=== PATIENT | male | born 2000 | race Caucasian/White ===

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

== ENCOUNTER 2021-03-24 22:26 | Emergency (ER) | payer OTHER ==
[~2021-03-24] VITALS: Ht 165.1 cm; Wt 148.3 kg
[~2021-03-24 22:26] MED LIST changes: -PROM118S4 PO; +PROM118S5 PO
[2021-03-24 22:38] VITALS: BP 131/60
--- NOTE | 2021-03-24 22:44 | NUR ---
PATIENT AMBULATED TO BED 11 WITH FATHER.
[2021-03-24] MEDS ORDERED: ONDA-188 SL (23:55)
[2021-03-25] MEDS: ONDANSETRON 4 MG ODT PO ONE (00:08)
[2021-03-25 00:24] VITALS: BP 131/60
--- NOTE | 2021-03-25 00:36 | NUR ---
Patient discharged with v/s stable. Written and verbal after care instructions given and explained. Patient verbalized understanding. Carried with steady gait. All questions addressed prior to discharge. Advised to follow up with PMD.
== END 2021-03-25 00:36 | disposition home or self-care (01) ==
LOC: MED 22:26
DX: R11.2 Nausea with vomiting, unspecified (principal); F41.9 Anxiety disorder, unspecified; F32.9 Major depressive disorder, single episode, unspecified; Z79.899 Other long term (current) drug therapy
CPT/HCPCS: 99283; Q0162

== ENCOUNTER 2021-09-17 10:03 | Emergency (ER) | payer OTHER ==
[~2021-09-17] VITALS: Ht 162.6 cm; Wt 156.7 kg
[~2021-09-17 10:03] MED LIST changes: +ONDA-188 SL
[2021-09-17 10:14] VITALS: BP 139/88
--- NOTE | 2021-09-17 10:35 | NUR ---
21 Y/O MALE BIB SELF C/O PAIN IN THE BACK TOOTH, JAW PAIN 4/10. DENIES ANY FEVER, DIFFICULTY SWALLOWING OR CHEWING, NO SWELLING NOTED ON THE AREA. PMH; DENIES NKA
--- NOTE | 2021-09-17 10:44 | NUR ---
DR LYNCH AT BEDSIDE
[2021-09-17] MEDS ORDERED: AMOX500C25 PO (10:47)
[2021-09-17] MEDS ORDERED: NAPR-54 PO (10:47)
--- NOTE | 2021-09-17 10:58 | NUR ---
Patient discharged with v/s stable. Written and verbal after care instructions ABOUT DENTAL ABSCESS given and explained. Patient alert, oriented and verbalized understanding of instructions. Ambulatory with steady gait. All questions addressed prior to discharge. ID band removed. Patient advised to follow up with PMD. Rx of AMOXICILLIN AND NAPROXEN given. Patient educated on indication of medication including possible reaction and side effects. Opportunity to ask questions provided and answered.
== END 2021-09-17 10:57 | disposition home or self-care (01) ==
LOC: MED 10:03
DX: K08.89 Other specified disorders of teeth and supporting structures (principal); Z79.899 Other long term (current) drug therapy; Z79.2 Long term (current) use of antibiotics; Z79.1 Long term (current) use of non-steroidal anti-inflammatories (NSAID)
CPT/HCPCS: 99283

== ENCOUNTER 2022-11-29 04:58 | Emergency (ER) | payer OTHER, MEDICAID ==
[~2022-11-29] VITALS: Ht 167.6 cm; Wt 108.9 kg
[~2022-11-29 04:58] MED LIST changes: +AMOX500C25 PO; +NAPR-54 PO
[2022-11-29 05:05] VITALS: BP 120/62; PULSE 79; RESP 17; TEMP 98.2; O2SAT 99
--- NOTE | 2022-11-29 05:11 | NUR ---
PT. WALKED TO BED 04
--- NOTE | 2022-11-29 05:15 | NUR ---
PT WENT TO BED 4
--- NOTE | 2022-11-29 05:21 | NUR ---
PT HAS PAIN AND SOME BRUISES IN THE LEFT ABD AND CUT IN LEFT
--- NOTE | 2022-11-29 05:22 | NUR ---
Patient being evaluated by physician at bedside.
--- NOTE | 2022-11-29 05:36 | NUR ---
PT WENT TO RADIOLOGY
[2022-11-29] MEDS ORDERED: NAPR-54 PO (05:56)
[2022-11-29 06:00] VITALS: BP 120/62; PULSE 79; RESP 17; TEMP 98.2; O2SAT 99
--- NOTE | 2022-11-29 06:02 | NUR ---
Patient discharged with v/s stable. Written and verbal after care instructions given and explained. Patient alert, oriented and verbalized understanding of instructions. Ambulatory with to home. All questions addressed prior to discharge. ID band removed. Patient advised to follow up with PMD. Rx of naproxen given. Patient educated on indication of medication including possible reaction and side effects. Opportunity to ask questions provided and answered.
== END 2022-11-29 06:02 | disposition home or self-care (01) ==
LOC: MED 04:58
DX: S13.4XXA Sprain of ligaments of cervical spine, initial encounter (principal); V49.88XA Car occupant (driver) (passenger) injured in other specified transport accidents, initial encounter; Y93.89 Activity, other specified; Y92.89 Other specified places as the place of occurrence of the external cause; Y99.8 Other external cause status
CPT/HCPCS: 72040; 99283; Q0092